=== PATIENT | female | born 2000 | race Caucasian/White ===

== ENCOUNTER 2020-02-03 06:19 | Inpatient (IN) ==
[2020-02-03] MEDS ORDERED: OXYTOCIN 30 UNITS/500 ML BAG IV PRN ×2 (06:59→14:27)
--- NOTE | 2020-02-03 07:19 | History & Physical Report ---
Date of Service February 03, 2020 Assessment & Plan (1) : 19 yo @ 39 weeks 6 days here for evaluation after having contractions, discharge and light bleeding, complicated by Obesity and RPR positive w/ confirmatory test negative - GBS: negative, blood type: AB + - Antibody negative, Rubella immune, hep B negative - continue monitoring - Anesthesia consulted for pain management - josefa, with 5-6 cm dilation, continue to monitor and augment as necessary Fetus - vertex - category 1 tracing History of Present Illness Primary Care Provider: Sophy Guardado-Jammie Webb Ashlee is a 19 y/o F at 39 weeks 6 days by certain LMP here for evaluation after having contractions that started at 3AM that were occurring every 1-2 minutes. She has had a lot of mucus but no loss of fluid. She has had light pink bleeding that started at 8 AM and has been consistent. She states that she had the flu in August otherwise has been healthy during . She is only taking PNV and was taking Tylenol when she would have a headache. She has no known allergies. Allergies Allergy/AdvReac Type Severity Reaction Status Date / Time No Known Allergies Allergy Verified 02/01/20 08:57 Home Medications Home Medications Medication Instructions Recorded Confirmed Type [id number] oil 1 tab PO DAILY 06/29/19 02/03/20 History breast pump #1 ea 11/16/19 02/01/20 Rx Patient History Medical History Encounter for anatomic survey Migraine Varicella vaccine Yeast infection Surgical History S/P tonsillectomy Family History Father Diabetes Hypertension Hypercholesteremia Grandfather (Maternal) Heart disease Sister Heart murmur Grandmother (Maternal) Liver disease Family/Other Liver disease Mother Thyroid disease Depression Social History (Updated 06/29/19 @ 11:00 by Abigail Cox) Preferred Language: Italian Communication Ability: Effective Radiologic Electronic Specialist Required: No Beliefs That Will Affect Care: None marital status: Single marital status details: Tayla Evans (19) [phone] Current Living Situation: Significant Other Current Living Situation Comment: lives with cody current occupational status: unemployed Feels Safe at Home: Yes Safety Concerns: Feels Safe At This Time Smoking Status: Never smoker Hx Alcohol Use: No Hx Substance Use: No Review of Systems Denies: fevers/chills Denies: SOB/cough/wheezing Denies: CP/palpitations Denies UTI Sx. Denies: headaches, vision changes Admits: mild swelling of her lower extremity Physical Exam Physical Exam: General: Alert, oriented. No acute distress. Cardiac: Regular rate and rhythm, no murmurs/rubs/gallops. Respiratory: Clear to auscultation no wheezes/rales/rhonchi. No increased work of breathing. Symmetrical chest rise. No respiratory distress. Abdomen: Soft, nontender, nondistended. Bowel sounds present. Fetus: Vertex Lower Extremities: No lower extremity edema or swelling. No deep calf pain. Brooks's negative bilaterally. Results & Data Vital Signs (Past 12 Hours) Vital Signs Temp Pulse Resp BP 02/03/20 06:39 113 H 153/86 H 02/03/20 06:37 112 H 156/82 H 02/03/20 06:32 37.7 C H 18 02/03/20 06:31 114 H 143/76 H Monitoring External Monitor Category 1 tracing - normal variability - no early decelerations, no late decelerations, no variable decelerations Supervising Physician Co-Signing Physician Notes Resident Physician Supervision Note: I was present with Dr. Rabago during the history and exam. I discussed the case with the resident and agree with the findings and plan as documented in the note. Any exceptions or clarifications are listed here: [None] Documented By: En Grewal Jr, MD, FACOG Resident Activity Tracking Resident Involvement: Resident Care Provided Care Provided: Adult Hospital Medicine
[2020-02-03] MEDS: LACTATED RINGER'S 1,000 ML IV PRN ×2 (07:59→09:48)
[2020-02-03 08:03] LABS: Hematocrit (blood only) 36.9 % (37-47); Hemoglobin 12.7 g/dL (12.0-16.0); Mean Corpuscular Hemoglobin 29.7 pg (25-34); Mean Corpuscular Volume 86.4 fL (80-100); Mean Platelet Volume 11.4 fL (7.4-10.4); Nucleated RBC # (auto) 0.02 K/uL (0-0); Nucleated RBC % (auto) 0.1 %; Platelet Count 192 K/uL (130-400); RDW Coefficient of Variation 14.9 % (11.5-14.5); RDW Standard Deviation 47.1 fL (36.4-46.3); Red Blood Count 4.27 M/uL (4.2-5.4); White Blood Count 17.26 K/uL (4.8-10.8)
[2020-02-03 08:13] LABS: Mean Corpuscular Hgb Conc 34.4 g/dL (32-36)
[2020-02-03] MEDS ORDERED: ePHEDrine sulfate 50 MG/ML AMP ONE (09:01)
[2020-02-03] MEDS ORDERED: fentaNYL citrate 100 MCG/2 ML VIAL ONE (09:01)
[2020-02-03] MEDS ORDERED: BUPIVACAINE 0.25% 30 ML VIAL ONE (09:01)
[2020-02-03] MEDS ORDERED: fentaNYL 2MCG/ML ROPIV 1.25MG/ML 100 ML BAG EPI ONE (09:02)
--- NOTE | 2020-02-03 09:23 | Labor Progress Brief Note ---
Date of Service February 03, 2020 Subjective Reason For Note: Routine Evaluation breathing with ctx. pain increasing. Assessment & Plan (1) Supervision of normal intrauterine in primigravida: doing well. now asking for epidural. will consider exam after comfortable, nurse just checked her cx and she was 6cm. fhts categ 2. she is aware i am assuming care. Physical Exam Constitutional: WD/WN, vitals as above Neurologic: grossly normal Psychiatric: A+Ox3, euthymic affect Genitourinary: OB Exam Monitor Tracing: + external FHT monitor used (140 mod variability, occas variable decels), + external uterine monitor used (q2), + category II and + normal FHT variability Results & Data Vital Signs (Past 12 Hours) Vital Signs Temp Pulse Resp BP Pulse Ox 02/03/20 09:18 123 H 99 02/03/20 09:13 97 H 100 02/03/20 09:08 107 H 96 02/03/20 08:49 121 H 139/96 02/03/20 06:39 113 H 153/86 H 02/03/20 06:37 112 H 156/82 H 02/03/20 06:32 99.9 F H 18 02/03/20 06:31 114 H 143/76 H Coding Level of Care Code None Diagnoses Supervision of normal intrauterine in primigravida Z34.00
--- NOTE | 2020-02-03 09:48 | Anesthesiology Consultation ---
Date of Service February 03, 2020 Assessment & Plan (1) Encounter for pre-operative examination: Chart Review Chart Review: Patient NOT seen in Pre Admission Testing and Acceptable Risk for Labor Epidural Consults Requested none ASA ASA2 Proposed Anesthesia Anesthesia Type: Labor Epidural Risk / Benefits Reviewed With: PT / POA / Parent / Guardian, Accepts Plan and Informed Consent Obtained History Height/Weight Height: 5 ft 6 in Weight: 133.81 kg Allergies Allergy/AdvReac Type Severity Reaction Status Date / Time No Known Allergies Allergy Verified 02/01/20 08:57 Medications Home Medications Medication Instructions Recorded Confirmed Last Taken [id number] oil 1 tab PO DAILY 06/29/19 02/03/20 02/02/20 breast pump #1 ea 11/16/19 02/01/20 Unknown Active Medications Generic Name Dose Route Start Last Admin Trade Name Freq PRN Reason Stop Dose Admin Lactated Ringer's 1,000 mls @ 125 mls/hr 02/03/20 06:59 02/03/20 07:59 Lr IV 02/05/20 06:58 999 mls/hr .Q8H PRN Administration L&D Protocol Protocol NPO Date Last Intake of Fluids: 02/03/20 Time Last Intake of Fluids: 08:00 Date Last Intake of Solids: 02/02/20 Time Last Intake of Solids: 18:00 Past Medical History Medical History Encounter for anatomic survey Migraine Varicella vaccine Yeast infection Exercise / Class Metabolic Activity II 4-5 Yardwork/Stairs/Walk up hill Past Family History Family History Father Diabetes Hypertension Hypercholesteremia Grandfather (Maternal) Heart disease Sister Heart murmur Grandmother (Maternal) Liver disease Family/Other Liver disease Mother Thyroid disease Depression Past Surgical History Surgical History S/P tonsillectomy Past Anesthesia History No Hx of Anesthesia Complications and No Family Hx of Anesthesia Complications History of PONV No Hx of PONV and No Hx of Motion Sickness Social History Smoking Status: Never smoker Hx Alcohol Use: No Hx Substance Use: No Physical Exam Vital Signs Last Vital Signs Temp 37.7 C H 02/03/20 06:32 Pulse 129 H 02/03/20 09:44 Resp 18 02/03/20 06:32 BP 161/74 H 02/03/20 09:44 Pulse Ox 99 02/03/20 09:43 Constitutional + morbidly obese ENMT Mouth: no dentition abnormality Thyromental Distance: > or= 3.5 Finger Breadths Mallampati Class: II Neck normal visual inspection Respiratory normal respiratory effort Auscultation: lungs clear to auscultation bilaterally Cardiovascular Rate/Rhythm: regular rate and regular rhythm Psychiatric Orientation: alert Testing Laboratory Results 02/03/20 07:53
[2020-02-03] MEDS ORDERED: NALOXONE HCL 1 MG in SODIUM CHLORIDE 0.9% 1000ML 1,000 ML IV PRN (09:49)
[2020-02-03] MEDS ORDERED: DiphenhydrAMINE HCL 50 MG/ML VIAL IV PRN (09:49)
[2020-02-03] MEDS ORDERED: ONDANSETRON INJ 2 MG/ML 2 ML VIAL IV PRN (09:49)
[2020-02-03] MEDS ORDERED: ePHEDrine sulfate 50 MG/ML AMP IV PRN (09:49)
[2020-02-03] MEDS ORDERED: fentaNYL 2MCG/ML ROPIV 1.25MG/ML 100 ML BAG EPI PRN (09:49)
[2020-02-03] MEDS ORDERED: NALOXONE HCL 0.4 MG/1 ML VIAL/CARP IV PRN (09:49)
[2020-02-03] MEDS ORDERED: PROMETHAZINE HCL 6.25 MG in SODIUM CHLORIDE 0.9% 50 ML IV PRN (09:49)
[2020-02-03] MEDS ORDERED: NALBUPHINE HCL INJ 10 MG/ML AMP IV PRN (09:49)
[2020-02-03 10:39] LABS: Albumin Level 2.8 gm/dl (3.4-5.0); BUN Creatinine Ratio 12.5 (10-20); Calcium 8.9 mg/dl (8.5-10.1); Creatinine Clr Calc Pharmacy 187.2 ml/min; Est GFR (Non-African American) 126.8; Potassium 3.8 mmol/L (3.5-5.1)
[2020-02-03 10:49] LABS: Albumin Globulin Ratio 0.5 (0.9-2); Bilirubin,Total 0.7 mg/dl (0.2-1); Globulin 5.3 gm/dl (2.5-4.0); Total Protein 8.1 gm/dl (6.4-8.2)
[2020-02-03] MEDS ORDERED: AMPICILLIN 2,000 MG in SODIUM CHLOR 0.9% AD-VAN 100 ML IV ONE (13:31)
--- NOTE | 2020-02-03 13:38 | Labor Progress Brief Note ---
Date of Service February 03, 2020 Subjective Reason For Note: Routine Evaluation pushing. told by RN that temp elevated. concentrated urine on straight cath, bp better Assessment & Plan (1) Supervision of normal intrauterine in primigravida: given elevated temp, plan amp for presumed chorio, pushing very effective, anticipate soon. fhts categ 1. Physical Exam Constitutional: WD/WN, vitals as above Psychiatric: A+Ox3, euthymic affect Genitourinary: Manual OB Exam: + cervical dilation 10 cm, + cervical effacement 100% and + station (+3) OB Exam Monitor Tracing: + external FHT monitor used (135 mod variability ), + external uterine monitor used (q2), + category I and + normal FHT variability Results & Data Vital Signs (Past 12 Hours) Vital Signs Temp Pulse Resp BP Pulse Ox 02/03/20 13:33 169 H 100 02/03/20 13:28 137 H 100 02/03/20 13:24 101.5 F H 20 02/03/20 13:23 135 H 100 02/03/20 13:21 123 H 130/65 02/03/20 13:18 122 H 99 02/03/20 13:13 116 H 99 02/03/20 13:08 108 H 100 02/03/20 13:07 117 H 130/63 02/03/20 13:03 120 H 99 02/03/20 12:58 112 H 99 02/03/20 12:53 113 H 100 02/03/20 12:51 114 H 129/66 02/03/20 12:48 117 H 99 02/03/20 12:43 119 H 100 02/03/20 12:38 118 H 100 02/03/20 12:35 112 H 18 133/60 02/03/20 12:33 111 H 100 02/03/20 12:28 116 H 100 02/03/20 12:23 120 H 100 02/03/20 12:22 121 H 176/72 H 02/03/20 12:20 115 H 184/71 H 02/03/20 12:18 116 H 100 02/03/20 12:13 125 H 100 02/03/20 12:08 122 H 169/79 H 99 02/03/20 12:06 116 H 199/88 H 02/03/20 12:03 107 H 100 052120 11:58 105 H 100 05/2120 11:53 101 H 100 0520 11:50 100 H 155/84 H 05 11:48 100 H 100 0520 11:43 101 H 100 0520 11:38 107 H 100 05 11:35 110 H 16 144/87 H 02/03/20 11:33 110 H 100 05 11:28 108 H 99 05 11:23 114 H 100 05 11:20 106 H 147/80 H 02/03/20 11:18 108 H 100 05 11:13 110 H 100 05 11:08 107 H 100 02/03/20 11:03 110 H 100 05 11:02 111 H 132/61 05 10:58 104 H 100 05 10:53 107 H 100 02/03/20 10:51 104 H 125/58 L 02/03/20 10:48 108 H 99 05 10:43 101 H 99 05 10:41 101 H 129/61 05/20 10:38 103 H 100 05 10:33 108 H 100 05 10:31 20 05 10:30 108 H 132/63 0520 10:28 107 H 100 05 10:23 108 H 100 05/20 10:21 99.3 F 110 H 20 133/60 0520 10:18 114 H 100 05 10:13 111 H 100 0520 10:11 115 H 133/61 0520 10:08 115 H 100 0520 10:03 115 H 99 0520 09:59 115 H 146/65 H 05 09:58 118 H 99 05 09:53 126 H 100 05 09:52 125 H 181/82 H 02/03/20 09:50 123 H 170/69 H 05 09:48 118 H 168/77 H 100 05 09:46 115 H 165/77 H 02/03/20 09:44 129 H 161/74 H 02/03/20 09:43 118 H 99 02/03/20 09:42 116 H 166/89 H 02/03/20 09:40 118 H 159/91 H 02/03/20 09:39 121 H 149/95 H 02/03/20 09:38 119 H 100 02/03/20 09:33 120 H 100 02/03/20 09:28 115 H 99 02/03/20 09:23 101 H 99 02/03/20 09:18 123 H 99 02/03/20 09:13 97 H 100 02/03/20 09:08 107 H 96 02/03/20 08:49 121 H 139/96 02/03/20 06:39 113 H 153/86 H 02/03/20 06:37 112 H 156/82 H 02/03/20 06:32 99.9 F H 18 02/03/20 06:31 114 H 143/76 H Coding Level of Care Code None Diagnoses Supervision of normal intrauterine in primigravida Z34.00
[2020-02-03] MEDS ORDERED: ACETAMINOPHEN 325 MG TAB PO PRN (14:11)
[2020-02-03] MEDS ORDERED: OXYCODONE/ACETAMINOPHEN 5mg/325mg TAB PO PRN (14:11)
[2020-02-03] MEDS ORDERED: OXYTOCIN 20 UNITS in LACTATED RINGER'S 1,000 ML IV SCH (14:15)
--- NOTE | 2020-02-03 14:15 | Delivery Summary ---
Vaginal Delivery Summary Date of Service February 03, 2020 The patient dilated to complete and pushed to deliver a viable male infant Apgars 6 and 8 via over mediolateral episiotomy cut due to concern for developing shoulder dystocia and short perineum. Mild shoulder dystocia encountered relieved with McRobert's maneuvers and suprapubic pressure. Mouth and nose bulb suctioned at perineum after anterior shoulder delivered. Loose nuchal x 1 noted and not reduced. Shoulders and body delivered with further maternal expulsive efforts. Cord clamped and to maternal abdomen where the cord was then doubly clamped and cut. to radiant warmer for attention. Placenta delivered spontaneously and intact, three-vessel cord. Hemostasis not achieved with dilute pitocin and uterine massage and uterus swept with no remaining poc's noted. Therefore 800mcg rectal cytotec given and hemostasis improved. Bladder drained for approximately 50 cc under sterile conditions. Cervix and sulci intact. Episiotomy repaired with 2-0, 3-0 vicryl in usual fasion. Left labial laceration repaired with running stitch of 4-0 vicryl. EBL 500 cc. Cord blood and cord gases obtained. Mother stable in recovery. taken to nursery for further evaluation.
[2020-02-03 14:24] LABS: Base Excess Cord Venous Blood -5.6 mEq/L (-7.7-1.9); Cord Venous Blood HCO3 19 mmol/L (18.4-26.8); Cord Venous Blood PCO2 34 mmHg (30.4-57.2); Cord Venous Blood PO2 35 mmHg (14.1-43.3); Cord Venous Blood pH 7.36 (7.20-7.44)
[2020-02-03] MEDS ORDERED: LACTATED RINGER'S 1,000 ML IV SCH (14:27)
[2020-02-03] MEDS ORDERED: SUPERCREAM 0.870% 15 GM JAR EXT PRN (14:27)
[2020-02-03] MEDS ORDERED: HYDROCORTISONE ACETATE 25 MG SUPP PR PRN (14:27)
[2020-02-03] MEDS ORDERED: DIPHTHERIA/TETANUS/PERTUSSIS 0.5 ML SYR/VIAL IM ONE (14:27)
[2020-02-03] MEDS ORDERED: miSOPROStoL 200 MCG TAB ONE (14:36)
[2020-02-03] MEDS: BENZOCAINE 20% AER SPR 82.5 GM CAN EXT PRN (17:23)
--- NOTE | 2020-02-03 18:00 | Anesthesia Procedure Note ---
Date of Service February 03, 2020 Anesthesia Post Epidural Note Vital Signs Vital Signs: Temp Pulse Resp BP Pulse Ox 37.7 C H 136 H 20 155/70 H 100 02/03/20 16:06 02/03/20 16:06 02/03/20 16:06 02/03/20 16:06 02/03/20 13:58 Notes Mental Status: alert / awake / arousable Nausea / Vomiting: adequately controlled Pain: adequately controlled Airway Patency, RR, SpO2: stable & adequate BP & HR: stable & adequate Hydration State: stable & adequate Neuraxial Anesthesia: was administered and sensory block is resolving Anesthetic Complications: no major complications apparent and Pt Satisfied with anesthetic care Epidural: Removed without complications and With tip intact
[2020-02-03] MEDS: DOCUSATE SODIUM 100 MG CAP PO SCH (20:43)
[2020-02-03] MEDS: IBUPROFEN 600 MG TAB PO PRN (21:26)
[2020-02-04 05:48] LABS: Hematocrit (blood only) 28.2 % (37-47); Hemoglobin 9.8 g/dL (12.0-16.0); Mean Corpuscular Hemoglobin 30.1 pg (25-34); Mean Corpuscular Hgb Conc 34.8 g/dL (32-36); Mean Corpuscular Volume 86.5 fL (80-100); Mean Platelet Volume 11.1 fL (7.4-10.4); Platelet Count 179 K/uL (130-400); RDW Coefficient of Variation 15.3 % (11.5-14.5); RDW Standard Deviation 48.4 fL (36.4-46.3); Red Blood Count 3.26 M/uL (4.2-5.4); White Blood Count 17.13 K/uL (4.8-10.8)
[2020-02-04] MEDS: IBUPROFEN 600 MG TAB PO PRN ×2 (06:20→10:34)
[2020-02-04 06:26] LABS: Basophils # (auto) 0.04 K/uL (0-0.2); Basophils % (auto) 0.2 %; Eosinophils # (auto) 0.06 K/uL (0-0.5); Eosinophils % (auto) 0.4 %; Immature Granulocytes # (auto) 0.08 K/uL (0.00-0.02); Immature Granulocytes % (auto) 0.5 %; Lymphocytes # (auto) 1.62 K/uL (1.2-3.4); Lymphocytes % (auto) 9.5 %; Monocytes # (auto) 1.66 K/uL (0.11-0.59); Monocytes % (auto) 9.7 %; Neutrophils # (auto) 13.67 K/uL (1.4-6.5); Neutrophils % (auto) 79.7 %
--- NOTE | 2020-02-04 07:13 | Obstetrical Progress Note ---
Date of Service February 04, 2020 Assessment & Plan Admission and Anticipated Discharge Date Admission Date: February 03, 2020 19 yo s/p VD @ 39.6 complicated by obesity, pt. was febrile prior to delivery and had labile BP, doing well this AM GBS -, AB+, eating well, voiding well, ambulating well, pain well controlled, 1-2 week BP check. Day #:: 1 Supervising Physician Co-Signing Physician Notes Resident Physician Supervision Note: I was present with Dr. Tavares during the history and exam. I discussed the case with the resident and agree with the findings and plan as documented in the note. Any exceptions or clarifications are listed here: Pt doing well, eating, voiding and ambulating without problem. baby in INBN, she is breast pumping. she has labile bps but no sx. ff 2 down, nt, obese. nt calves. will plan routine pp care. watch bps and may need pp bp check. hgb noted and did have pph. she does have some tachycardia but denies sx, improved from previous, monitor. Documented By: Soledad Crowell MD, FACOG Subjective Ambulation: ambulating normally Voiding: no voiding problems Diet Tolerance:: regular diet Lochia:: heavy period Feeding Type:: pumping doing well, denies complaints. Physical Exam Constitutional: WD/WN, vitals as above Respiratory: normal respiratory effort, lungs clear to auscultation Cardiovascular: Rate/Rhythm: regular rate and regular rhythm Gastrointestinal (Abdomen): Inspection/Auscultation: abdomen normal to inspection Percussion/Palpation: abdomen soft fundus firm 2 cm below umbilicus Musculoskeletal: nt calves no edema Neurologic: grossly normal Psychiatric: A+Ox3, euthymic affect Results & Data ([facility]) Vital Signs (Past 12 Hours) Vital Signs Temp Pulse Resp BP Pulse Ox 02/04/20 03:00 36.7 C 102 H 16 138/80 98 02/03/20 23:05 36.8 C 111 H 16 107/70 98 Resident Activity Tracking Resident Involvement: Resident Care Provided Care Provided: OB Delivery
[2020-02-04] MEDS: DOCUSATE SODIUM 100 MG CAP PO SCH (07:55)
[2020-02-04] MEDS: BENZOCAINE 20% AER SPR 82.5 GM CAN EXT PRN (12:36)
== END 2020-02-04 13:21 | disposition home or self-care (01) | DRG 807 ==
LOC: OPB 06:19 → 4S1 06:23 → 4S2 16:26